=== PATIENT | female | born 1975 | race Caucasian/White ===

== ENCOUNTER → 2017-03-27 | Outpatient (CLI) | payer OTHER ==
--- NOTE | 2017-03-28 14:18 | Diagnostic Imaging Report ---
EXAMINATION: Bilateral screening mammogram 2D views with tomosynthesis. The current study was also evaluated with a Computer Aided Detection (CAD) system. INDICATION: Screening. PERSONAL HISTORY: No current complaints stated on the questionnaire. COMPARISON: 02/26/2016. FINDINGS: The breasts are composed of heterogeneously dense parenchyma which may decrease mammographic sensitivity. Postsurgical changes and surgical clips are seen in the central aspect of the left breast. Allowing for technique and positional differences, no suspicious change is seen. IMPRESSION: No significant change. ACR BI-RADS Category 2: Benign findings. Result letter will be mailed to the patient. Note: At least 10% of breast cancer is not imaged by mammography. Dictated on workstation # [id number]
== END ==
LOC: RAD 10:39
PROVIDERS: ATTEND Obstetrics & Gynecology
DX: Z12.31 Encounter for screening mammogram for malignant neoplasm of breast (principal)
CPT/HCPCS: 77067

== ENCOUNTER → 2018-04-07 | Outpatient (CLI) | payer OTHER ==
--- NOTE | 2018-04-07 12:55 | Diagnostic Imaging Report ---
INDICATION: Routine screening. Comparison is made with prior mammogram from 03/27/2017 02/26/2016. 2-D and 3-D bilateral screening mammography was performed with CAD. Both breasts are heterogeneously dense, limiting the sensitivity of mammography. Post surgical changes in the left breast are again noted. There are multiple punctate calcifications near the surgical site which appear to be stable. No new mass or malignant appearing microcalcifications are seen. The axillae are unremarkable. IMPRESSION: BI-RADS category 2 No mammographic features suspicious for malignancy are identified. ACR BI-RADS Category 2: Benign findings. Result letter will be mailed to the patient. Note: At least 10% of breast cancer is not imaged by mammography. Dictated by: Dictated on workstation # [id number]
== END ==
LOC: RAD 07:54
PROVIDERS: ATTEND Obstetrics & Gynecology
DX: Z12.31 Encounter for screening mammogram for malignant neoplasm of breast (principal)
CPT/HCPCS: 77067

== ENCOUNTER → 2019-04-08 | Outpatient (CLI) | payer OTHER ==
--- NOTE | 2019-04-08 18:41 | Diagnostic Imaging Report ---
EXAMINATION: Digital mammogram bilateral screening. The current study was also evaluated with a Computer Aided Detection (CAD) system. 3-D tomosynthesis was also performed and reviewed. INDICATION: Screening. This study was compared to the prior exams of 04/25/2018, 03/27/2017, 02/26/2016, and 02/10/2015. At this time, there are no current complaints. FINDINGS: The fibroglandular tissue in both breasts is heterogeneously dense. This does limit the sensitivity of this exam. The postsurgical changes involving the left breast seen previously are again evident. There is scar formation and surgical clips evident in the midportion of the left breast. There are also a number of calcifications in this region. These findings seem similar to the prior exams. There is no primary or secondary sign of malignancy noted. IMPRESSION: There is no evidence for malignancy. ACR BI-RADS Category 1: Negative. Result letter will be mailed to the patient. Note: At least 10% of breast cancer is not imaged by mammography. Dictated by: Dictated on workstation # [id number]
== END ==
LOC: RAD 08:08
PROVIDERS: ATTEND Obstetrics & Gynecology
DX: Z12.31 Encounter for screening mammogram for malignant neoplasm of breast (principal)
CPT/HCPCS: 77067

== ENCOUNTER 2019-07-08 14:13 | Outpatient (CLI) | payer OTHER ==
[~2019-07-08] VITALS: Ht 175 cm; Wt 73.8 kg
[2019-07-08] MEDS ORDERED: CHOL2000 PO (14:22)
[2019-07-08] MEDS ORDERED: ACYC400T7 PO (14:22)
[2019-07-08] MEDS ORDERED: LORA10TA76 PO (14:22)
[2019-07-08] MEDS ORDERED: FERR-84 PO (14:22)
[2019-07-08 14:25] VITALS: BP 109/63
[2019-07-08 15:21] LABS: BASOPHILS % (AUTO) 0 % (0-10); EOSINOPHILS # (AUTO) 0.3 10^3/uL (0.0-0.3); EOSINOPHILS % (AUTO) 4 % (0-10); HEMATOCRIT 40 % (35-52); HEMOGLOBIN 13.3 G/DL (11.5-16.0); LYMPHOCYTES # (AUTO) 2.4 X 10^3 (1.0-4.0); LYMPHOCYTES % (AUTO) 31 % (12-44); MEAN CORPUSCULAR HEMOGLOBIN 29 PG (25-34); MEAN CORPUSCULAR HGB CONC 34 G/DL (32-36); MEAN CORPUSCULAR VOLUME 86 FL (80-99); MEAN PLATELET VOLUME 11.3 FL (7.4-10.4); MONOCYTES # (AUTO) 0.6 X 10^3 (0.0-1.0); MONOCYTES % (AUTO) 8 % (0-12); NEUTROPHILS # (AUTO) 4.4 X 10^3 (1.8-7.8); NEUTROPHILS % (AUTO) 57 % (42-75); PLATELET COUNT 190 10^3/uL (130-400); RED CELL DISTRIBUTION WIDTH 13.5 % (10.0-14.5); WHITE BLOOD COUNT 7.8 10^3/uL (4.3-11.0)
[2019-07-13] MEDS ORDERED: IBUP-1773 PO (11:54)
[2019-07-13] MEDS ORDERED: OXC5T PO (11:54)
[2019-07-13] MEDS ORDERED: ACET-168 PO (11:54)
== END 2019-07-08 15:30 | disposition home or self-care (01) ==
LOC: PREOP 14:13
PROVIDERS: ATTEND Obstetrics & Gynecology
DX: Z01.818 Encounter for other preprocedural examination (principal); Z01.812 Encounter for preprocedural laboratory examination; N81.10 Cystocele, unspecified
CPT/HCPCS: 36415; 85025; 86850; 86900; 86901; 87081

== ENCOUNTER → 2020-05-02 | Outpatient (CLI) | payer OTHER ==
[~2020-05-02] MED LIST: ACET-168 PO; ACYC400T7 PO; CHOL2000 PO; FERR-84 PO; IBUP-1773 PO; LORA10TA76 PO; OXC5T PO
--- NOTE | 2020-05-02 10:30 | Diagnostic Imaging Report ---
INDICATION: Routine screening. COMPARISON: 04/08/2019 and 04/07/2018. TECHNIQUE: 2D and 3D bilateral screening mammography was performed with CAD. FINDINGS: Both breasts are heterogeneously dense, limiting the sensitivity of mammography. Post-therapeutic changes in the left breast are again noted. The lumpectomy site appears stable. Benign calcifications at the lumpectomy site appear stable. There is a slightly nodular density in the upper and outer right breast at mid depth. This is best seen on CC tomographic slice 40. Additional views are recommended. No suspicious microcalcifications are seen. The axillae are unremarkable. IMPRESSION: Right breast density. Additional views are recommended for further evaluation. ACR BI-RADS Category 0: Incomplete. (Needs additional imaging evaluation). Result letter will be mailed to the patient. Note: At least 10% of breast cancer is not imaged by mammography. Dictated by: Dictated on workstation # [id number]
== END ==
LOC: RAD 08:30
PROVIDERS: ATTEND Obstetrics & Gynecology
DX: Z12.31 Encounter for screening mammogram for malignant neoplasm of breast (principal); N63.11 Unspecified lump in the right breast, upper outer quadrant
CPT/HCPCS: 77063; 77067

== ENCOUNTER → 2020-05-11 | Outpatient (CLI) | payer OTHER ==
--- NOTE | 2020-05-11 14:30 | Diagnostic Imaging Report ---
INDICATION: Right breast density. Patient presents for additional views. COMPARISON: Recent screening study from 05/02/2020. TECHNIQUE: Unilateral right 2D and 3D diagnostic mammography was performed including spot compression CC and ML views as well as a conventional 90 degree lateral view. The current study was evaluated with a Computer Aided Detection (CAD) system. FINDINGS: There is a persistent slightly nodular density in the upper outer right breast approximately 6 cm from the nipple. No suspicious microcalcifications are seen. IMPRESSION: Persistent density in the upper outer right breast 6 cm from the nipple. Further evaluation of this area with ultrasound is recommended and will be performed today. ACR BI-RADS Category 0: Incomplete. (Needs additional imaging evaluation). Result letter will be mailed to the patient. Note: At least 10% of breast cancer is not imaged by mammography. Dictated by: Dictated on workstation # [id number]
--- NOTE | 2020-05-11 14:32 | Diagnostic Imaging Report ---
INDICATION: Right breast density. COMPARISON: Correlation is made with the screening mammogram from 05/02/2020 and the diagnostic mammogram from 05/11/2020. FINDINGS: Sonographic interrogation of the upper and outer aspect of the right breast was performed. No sonographic abnormality is detected. No solid or cystic mass is identified. IMPRESSION: No sonographic abnormality is identified. Even so, a followup right mammogram in 6 months is recommended to show continued stability. ACR BI-RADS Category 3: Probably benign findings. Dictated by: Dictated on workstation # [id number]
== END ==
LOC: RAD 13:15
PROVIDERS: ATTEND Obstetrics & Gynecology
DX: R92.2 Inconclusive mammogram (principal)
CPT/HCPCS: 76642; 77065; G0279

== ENCOUNTER → 2020-12-21 | Outpatient (CLI) | payer OTHER ==
--- NOTE | 2020-12-21 10:56 | Diagnostic Imaging Report ---
Indication: Right breast density. Patient presents for six-month follow-up. Correlation is made with prior mammogram 05/02/2020, 04/08/2019. Unilateral right 2-D and 3-D diagnostic mammography was performed with CAD. Right breast remains heterogeneously dense, limiting the sensitivity of mammography. Area of nodular density in the outer right breast is less prominent on today's study most likely represent fibroglandular tissue. No new mass is detected. No malignant appearing microcalcifications are seen. Right axilla is unremarkable. IMPRESSION: BI-RADS Category 2 No mammographic features suspicious for malignancy are identified. Patient may return to routine annual screening mammography. ACR BI-RADS Category 2: Benign findings. Result letter will be mailed to the patient. Note: At least 10% of breast cancer is not imaged by mammography. Dictated by: Dictated on workstation # [id number]
== END ==
LOC: RAD 09:04
PROVIDERS: ATTEND Obstetrics & Gynecology
DX: R92.2 Inconclusive mammogram (principal)
CPT/HCPCS: 77065; G0279

== ENCOUNTER → 2020-12-23 | Outpatient (CLI) | payer OTHER ==
[2020-12-23 12:09] LABS: HEMOGLOBIN 14.1 g/dL (11.5-16.0); LYMPHOCYTES % (AUTO) 22 % (12-44); MEAN CORPUSCULAR HEMOGLOBIN 29 pg (25-34); MEAN PLATELET VOLUME 10.6 fL (9.0-12.2)
[2020-12-23 12:11] LABS: BASOPHILS % (AUTO) 0 % (0-10); EOSINOPHILS % (AUTO) 0 % (0-10); HEMATOCRIT 43 % (35-52); LYMPHOCYTES # (AUTO) 1.2 10^3/uL (1.0-4.0); MEAN CORPUSCULAR HGB CONC 33 g/dL (32-36); MEAN CORPUSCULAR VOLUME 87 fL (80-99); MONOCYTES # (AUTO) 0.6 10^3/uL (0.0-1.0); MONOCYTES % (AUTO) 11 % (0-12); NEUTROPHILS # (AUTO) 3.5 10^3/uL (1.8-7.8); NEUTROPHILS % (AUTO) 66 % (42-75); PLATELET COUNT 135 10^3/uL (130-400); WHITE BLOOD COUNT 5.4 10^3/uL (4.3-11.0)
[2020-12-23 12:30] LABS: ALANINE AMINOTRANSFERASE 23 U/L (0-55); ALBUMIN 4.1 GM/DL (3.2-4.5); ALKALINE PHOSPHATASE 49 U/L (40-136); BILIRUBIN,TOTAL 0.5 MG/DL (0.1-1.0); BUN/CREATININE RATIO 8; CALCIUM 9.4 MG/DL (8.5-10.1); CARBON DIOXIDE 25 MMOL/L (21-32); CHLORIDE 105 MMOL/L (98-107); CREATININE SERUM 0.86 MG/DL (0.60-1.30); GFR ESTIMATED > 60; GLUCOSE 94 MG/DL (70-105); POTASSIUM 3.8 MMOL/L (3.6-5.0); SODIUM 138 MMOL/L (135-145); TOTAL PROTEIN 7.3 GM/DL (6.4-8.2)
== END ==
LOC: LAB 11:55
PROVIDERS: ATTEND Nurse Practitioner Family
DX: M54.2 Cervicalgia (principal); R53.83 Other fatigue; R51.9 Headache, unspecified; R59.1 Generalized enlarged lymph nodes
CPT/HCPCS: 36415; 80053; 85025; 86663; 86664; 86665

== ENCOUNTER → 2021-05-03 | Outpatient (CLI) | payer OTHER ==
--- NOTE | 2021-05-03 14:57 | Diagnostic Imaging Report ---
Digital mammogram. Indication: Bilateral screening This study was compared to the prior exams of 12/21/2020, 05/02/2020, 04/08/2019 and 04/07/2018. At this time there are no current complaints. The fibroglandular tissue in both breasts is heterogeneously dense. This does limit the sensitivity of this exam. The posterior cervical chains involving the left breast seen previously are again evident and not significantly different. The overall appearance of the right breast is also unchanged when compared to the prior study. There is no primary or secondary sign of malignancy involving either breast. Impression: There is no evidence of malignancy. ACR BI-RADS Category 1 NEGATIVE Result letter will be mailed to the patient. Note: At least 10% of breast cancer is not imaged by mammography. Dictated by: Dictated on workstation # [id number]
== END ==
LOC: RAD 07:45
PROVIDERS: ATTEND Obstetrics & Gynecology
DX: Z12.31 Encounter for screening mammogram for malignant neoplasm of breast (principal)
CPT/HCPCS: 77063; 77067

== ENCOUNTER 2021-08-02 21:44 | Emergency (ER) | payer OTHER ==
[~2021-08-02] VITALS: Ht 175.3 cm; Wt 72.6 kg
[2021-08-02 21:50] VITALS: BP 110/66
[2021-08-02 21:57] LABS: BILIRUBIN,URINE NEGATIVE (NEGATIVE); CLARITY,URINE CLEAR; COLOR,URINE YELLOW; GLUCOSE, URINE (UA) NEGATIVE (NEGATIVE); KETONES,URINE NEGATIVE (NEGATIVE); LEUKOCYTE ESTERASE ,URINE NEGATIVE (NEGATIVE); NITRITE,URINE NEGATIVE (NEGATIVE); PROTEIN,URINE NEGATIVE (NEGATIVE)
--- NOTE | 2021-08-02 22:15 | ED General ---
General Chief Complaint: Abdominal/GI Problems Stated Complaint: RIGHT SIDE PAIN Source of Information: Patient, Spouse Exam Limitations: No Limitations (MACHO COONEY MED STUDENT) History of Present Illness Date Seen by Provider: Aug 02, 2021 Time Seen by Provider: 22:04 Initial Comments Ivana Lindsey is a 46 yr old F presenting to ED for CC of RLQ abdominal pain. Pt states pain began approximately at 19:30 this evening during her son's basketba ll practice. Pt notes the pain has been isolated to the RLQ without radiation. Pain is described as a dull, concentrated pressure and rated at a 6-7/10 that is progressively worsening. Associated symptoms endorsed include nausea and denies constipation or increased flatulence. Pt denies PMH. PSH includes hysterectomy w/o oophorectomy. Endorses prophylactic acyclovir use for cold sores and claritin use for allergies. Timing/Duration: 1-3 Hours Severity: Mild Modifying Factors: worse with Movement; improves with Rest Associated Systoms: Nausea/Vomiting (MACHO COONEY MED STUDENT) Allergies and Home Medications Allergies Coded Allergies: Sulfa (Sulfonamide Antibiotics) (Verified Allergy, Mild, HIVES, 07/08/19) cefaclor (Verified Allergy, Mild, HIVES, 07/08/19) Patient Home Medication List Home Medication List Reviewed: Yes (HIRAM WILKINS MD) Acetaminophen (Acetaminophen Extra Strength) 500 Mg Tablet, 1,000 MG PO Q8H Prescribed by: NILESH YARBROUGH on 07/13/19 1154 Acyclovir (Zovirax) 400 Mg Tablet, 400 MG PO DAILY PRN for COLD SORES, (Reported) Entered as Reported by: KENROY LEDESMA on 07/08/19 1422 Cholecalciferol (Vitamin D3) (Vitamin D) 2,000 Unit Capsule, 2,000 UNIT PO DAILY, (Reported) Entered as Reported by: KENROY LEDESMA on 07/08/19 1422 Ferrous Sulfate (Iron) 325 Mg Tablet, 325 MG PO DAILY, (Reported) Entered as Reported by: KENROY LEDESMA on 07/08/19 1422 Ibuprofen (Ibuprofen) 600 Mg Tablet, 600 MG PO Q6H PRN for PAIN-MILD Prescribed by: NILESH YARBROUGH on 07/13/19 1154 Loratadine (Claritin) 10 Mg Tablet, 10 MG PO DAILY, (Reported) Entered as Reported by: KENROY LEDESMA on 07/08/19 1422 Oxycodone Hcl (Oxycodone IR) 5 Mg Tab, 5 MG PO Q4H PRN for PAIN-SEVERE Prescribed by: NILESH YARBROUGH on 07/13/19 1154 Review of Systems Review of Systems Constitutional: no symptoms reported EENTM: no symptoms reported Respiratory: no symptoms reported Cardiovascular: no symptoms reported Gastrointestinal: RLQ; No constipation; nausea; No vomiting Genitourinary: no symptoms reported : No Musculoskeletal: no symptoms reported Skin: no symptoms reported Psychiatric/Neurological: No Symptoms Reported Hematologic/Lymphatic: No Symptoms Reported Immunological/Allergic: no symptoms reported (MACHO COONEY) All Other Systems Reviewed Negative Unless Noted: Yes (MACHO COONEY) Past Fzxvoib-Xgzkdk-Yetelp Hx Seasonal Allergies Seasonal Allergies: Yes (MACHO COONEY) Past Medical History Surgeries: Yes (BREAST BIOPSY, MOLES REMOVED CHILD) Hysterectomy (w/o oophorectomy) Respiratory: Yes (EXERCISE INDUCED ASTHMA (NO ISSUES RECENTLY)) Currently Using CPAP: No Currently Using BIPAP: No Cardiac: No Neurological: No Female Reproductive Disorders: Denies Sexually Transmitted Disease: No HIV/AIDS: Yes Genitourinary: No Gastrointestinal: No Musculoskeletal: No Endocrine: Yes (HAS TAKEN MEDS IN THE PAST) Hypothyroidsim HEENT: Yes (GLASSES) Loss of Vision: Denies Hearing Impairment: Denies Cancer: No Psychosocial: No Integumentary: Yes Eczema Blood Disorders: Yes (HX LOW IRON) Adverse Reaction/Blood Tranf: No (N/A) (MACHO COONEY) Physical Exam Vital Signs Vital Signs - First Documented 08/02/21 21:50 Temp 36.8 Pulse 95 Resp 18 B/P (MAP) 110/66 (81) Pulse Ox 98 O2 Delivery Room Air (HIRAM WILKINS MD) Vital Signs Capillary Refill : (MACHO COONEY STUDENT) Height, Weight, BMI Height: 5'7" Weight: 160lbs. oz. kg; 24.09 BMI Method: General Appearance: WD/WN, Mild Distress Neck: Supple Respiratory: Chest Non Tender, Lungs Clear, Normal Breath Sounds, No Accessory Muscle Use, No Respiratory Distress Cardiovascular: Regular Rate, Rhythm, No Edema, No Gallop, No Murmur Gastrointestinal: Normal Bowel Sounds, Tenderness (RLQ), Other (Psoas sign (+)) Rectal: Deferred Neurologic/Psychiatric: Alert, Oriented x3, No Motor/Sensory Deficits, Normal Mood/Affect Skin: Normal Color, Warm/Dry ([facility]) Progress/Results/Core Measures Suspected Sepsis SIRS Temperature: Pulse: Respiratory Rate: Blood Pressure / Mean: ([facility]) Results/Orders Lab Results Laboratory Tests Test 08/02/21 21:53 08/02/21 22:20 Range/Units Urine Color YELLOW Urine Clarity CLEAR Urine pH 6.0 5-9 Urine Specific [place] 1.025 H 1.016-1.022 Urine Protein NEGATIVE NEGATIVE Urine Glucose (UA) NEGATIVE NEGATIVE Urine Ketones NEGATIVE NEGATIVE Urine Nitrite NEGATIVE NEGATIVE Urine Bilirubin NEGATIVE NEGATIVE Urine Urobilinogen 0.2 < = 1.0 MG/DL Urine Leukocyte Esterase NEGATIVE NEGATIVE Urine RBC (Auto) TRACE-I H NEGATIVE Urine RBC 2-5 H /HPF Urine WBC 0-2 /HPF Urine Squamous Epithelial Cells 2-5 /HPF Urine Crystals NONE /LPF Urine Bacteria MODERATE H /HPF Urine Casts NONE /LPF Urine Mucus NEGATIVE /LPF Urine Culture Indicated YES White Blood Count 10.5 4.3-11.0 10^3/uL Red Blood Count 3.95 3.80-5.11 10^6/uL Hemoglobin 11.0 L 11.5-16.0 g/dL Hematocrit 34 L 35-52 % Mean Corpuscular Volume 85 80-99 fL Mean Corpuscular Hemoglobin 28 25-34 pg Mean Corpuscular Hemoglobin Concent 33 32-36 g/dL Red Cell Distribution Width 13.5 10.0-14.5 % Platelet Count 172 130-400 10^3/uL Mean Platelet Volume 11.0 9.0-12.2 fL Immature Granulocyte % (Auto) 0 % Neutrophils (%) (Auto) 66 42-75 % Lymphocytes (%) (Auto) 22 12-44 % Monocytes (%) (Auto) 8 0-12 % Eosinophils (%) (Auto) 3 0-10 % Basophils (%) (Auto) 0 0-10 % Neutrophils # (Auto) 7.0 1.8-7.8 10^3/uL Lymphocytes # (Auto) 2.3 1.0-4.0 10^3/uL Monocytes # (Auto) 0.8 0.0-1.0 10^3/uL Eosinophils # (Auto) 0.3 0.0-0.3 10^3/uL Basophils # (Auto) 0.0 0.0-0.1 10^3/uL Immature Granulocyte # (Auto) 0.0 0.0-0.1 10^3/uL Sodium Level 139 135-145 MMOL/L Potassium Level 3.8 3.6-5.0 MMOL/L Chloride Level 109 H 98-107 MMOL/L Carbon Dioxide Level 17 L 21-32 MMOL/L Anion Gap 13 5-14 MMOL/L Blood Urea Nitrogen 21 H 7-18 MG/DL Creatinine 0.86 0.60-1.30 MG/DL Estimat Glomerular Filtration Rate 84 BUN/Creatinine Ratio 24 Glucose Level 103 70-105 MG/DL Calcium Level 8.8 8.5-10.1 MG/DL Corrected Calcium 9.0 8.5-10.1 MG/DL Total Bilirubin 0.2 0.1-1.0 MG/DL Aspartate Amino Transf (AST/SGOT) 15 5-34 U/L Alanine Aminotransferase (ALT/SGPT) 12 0-55 U/L Alkaline Phosphatase 35 L 40-136 U/L C-Reactive Protein High Sensitivity 0.13 0.00-0.50 MG/DL Total Protein 6.3 L 6.4-8.2 GM/DL Albumin 3.7 3.2-4.5 GM/DL (HIRAM WILKINS MD) Micro Results Microbiology 08/02/21 Urine Culture - Final, Complete NO GROWTH (HIRAM WILKINS MD) My Orders Orders - HIRAM WILKINS MD Ua Culture If Indicated (08/02/21 21:50) Cbc With Automated Diff (08/02/21 22:10) Comprehensive Metabolic Panel (08/02/21 22:10) Hs C Reactive Protein (08/02/21 22:10) Ed Iv/Invasive Line Start (08/02/21 22:10) Urine Culture (08/02/21 21:53) (HIRAM WILKINS MD) Vital Signs/I&O 1/27/22 21:50 Temp 36.8 Pulse 95 Resp 18 B/P (MAP) 110/66 (81) Pulse Ox 98 O2 Delivery Room Air (HIRAM WILKINS MD) Vital Signs/I&O Capillary Refill : (MACHO COONEY MED STUDENT) Departure Impression Primary Impression: Right lower quadrant pain Disposition: 01 HOME, SELF-CARE Condition: Improved Departure-Patient Inst. Decision time for Depature: 00:09 (HIRAM WILKINS MD) Referrals: NO,LOCAL PHYSICIAN (PCP/Family) Primary Care Physician Patient Instructions: Severe Abdominal Pain Add. Discharge Instructions: The exact cause of your abdominal pain is uncertain at this time. For mild pain you may treat with Tylenol (acetaminophen) up to 1000 mg every 6 hours as needed and/or ibuprofen up to 600 mg every 6 hours as needed. For more severe or escalating pain that is not responsive to [id number] medications, please return to the ER. Please also return to the ER if you have other developing symptoms such as fever, vomiting, etc. If pain persists in the morning, you may return to the hospital after 7:30 with your ultrasound order form for further evaluation. Start with clear liquids. After your ultrasound or after about 12 hours gradually advance your diet with small quantities of bland food as tolerated. Call with questions or concerns. Return to the ER if you have any other urgent problems or concerns. All discharge instructions reviewed with patient and/or family. Voiced understanding. Medical Student Attestation and Attending Note: I have personally interviewed and examined this patient along with Macho Cooney, MS4. I have reviewed student documentation including history, physical, and assessments. I agree with the documentation except where otherwise noted. Pain was mild to moderate in nature and improved some while in the ER. Labs and vitals were unremarkable. Possible causes of pain were discussed as well as risks and benefits of imaging modalities. She declines medication for pain or nausea at this time. She also declines CT imaging. As an alternative, an US is being ordered for the morning. Patient retains her ovaries after hysterectomy, so ovarian cyst is possible cause. Exam: General: Alert, oriented, no acute distress, well developed HEENT: Normocephalic and atraumatic Heart: Regular rate and rhythm without murmur Lungs: Clear to auscultation bilaterally with normal effort Abdomen: Soft, RLQ mild to mod TTP, nondistended, normal bowel sounds. Negative obturator, psoas, and Rovsing signs. Neuropsych: Alert, oriented, no focal deficits Skin: Warm and dry without rashes (HIRAM WILKINS MD) MACHO COONEY MED STUDENT Aug 02, 2021 22:15 HIRAM WILKINS MD Aug 03, 2021 00:13
[2021-08-02 22:16] LABS: BACTERIA,URINE MODERATE /HPF; WBC,URINE 0-2 /HPF
[2021-08-02 22:28] LABS: BASOPHILS % (AUTO) 0 % (0-10); EOSINOPHILS # (AUTO) 0.3 10^3/uL (0.0-0.3); EOSINOPHILS % (AUTO) 3 % (0-10); HEMATOCRIT 34 % (35-52); LYMPHOCYTES # (AUTO) 2.3 10^3/uL (1.0-4.0); LYMPHOCYTES % (AUTO) 22 % (12-44); MEAN CORPUSCULAR HEMOGLOBIN 28 pg (25-34); MEAN CORPUSCULAR HGB CONC 33 g/dL (32-36); MEAN CORPUSCULAR VOLUME 85 fL (80-99); MONOCYTES # (AUTO) 0.8 10^3/uL (0.0-1.0); MONOCYTES % (AUTO) 8 % (0-12); NEUTROPHILS % (AUTO) 66 % (42-75); PLATELET COUNT 172 10^3/uL (130-400); WHITE BLOOD COUNT 10.5 10^3/uL (4.3-11.0)
[2021-08-02 22:53] LABS: ALBUMIN 3.7 GM/DL (3.2-4.5); BILIRUBIN,TOTAL 0.2 MG/DL (0.1-1.0); CALCIUM 8.8 MG/DL (8.5-10.1); CREATININE SERUM 0.86 MG/DL (0.60-1.30); POTASSIUM 3.8 MMOL/L (3.6-5.0); TOTAL PROTEIN 6.3 GM/DL (6.4-8.2)
== END 2021-08-03 00:31 | disposition home or self-care (01) ==
LOC: EDUNIT# 21:44 → ER 21:46
DX: R10.31 Right lower quadrant pain (principal); J45.990 Exercise induced bronchospasm; Z90.711 Acquired absence of uterus with remaining cervical stump
CPT/HCPCS: 36415; 80053; 81000; 85025; 86141; 87088

== ENCOUNTER → 2021-08-03 | Outpatient (CLI) | payer OTHER ==
--- NOTE | 2021-08-03 14:19 | Diagnostic Imaging Report ---
PROCEDURE: Pelvic comp/transvaginal sonogram. TECHNIQUE: Complete transabdominal and transvaginal pelvic ultrasound was performed. In addition, limited pelvic Doppler was performed. INDICATION: Partial hysterectomy in 2019. Patient has right lower quadrant pain. The uterus is surgically absent. The right ovary measures 5.5 x 3.6 x 2.8 cm and the left ovary measures 3.7 x 2.1 x 2.2 cm. The right ovary contains multiple cysts, the largest is approximate 2.5 cm in diameter. There is blood flow to the right ovary. The left ovary contains a septated cyst measuring 1.7 cm in size. There is blood flow to the left ovary. A small amount free fluid is noted. IMPRESSION: 1. Status post hysterectomy. 2. Bilateral ovarian cysts, as described. Dictated by: Dictated on workstation # [id number]
== END ==
LOC: RAD 13:00
PROVIDERS: ATTEND Family Medicine
DX: N83.202 Unspecified ovarian cyst, left side (principal); N83.201 Unspecified ovarian cyst, right side; Z90.710 Acquired absence of both cervix and uterus
CPT/HCPCS: 76830; 76856

== ENCOUNTER → 2022-05-07 | Outpatient (CLI) | payer OTHER ==
--- NOTE | 2022-05-07 16:06 | Diagnostic Imaging Report ---
INDICATION: Routine screening. COMPARISON: 05/03/2021 and 05/02/2020. TECHNIQUE: 2D and 3D bilateral screening mammography was performed with CAD. FINDINGS: Both breasts are heterogeneously dense, limiting the sensitivity of mammography. There are post-therapeutic changes in the left breast. The parenchymal pattern is stable. No mass or malignant-appearing microcalcifications are seen. There are benign calcifications on the left. The axillae are unremarkable. IMPRESSION: No mammographic features suspicious for malignancy are identified. ACR BI-RADS Category 2: Benign findings. Result letter will be mailed to the patient. Note: At least 10% of breast cancer is not imaged by mammography. Dictated by: Dictated on workstation # [id number]
== END ==
LOC: RAD 07:56
PROVIDERS: ATTEND Nurse Practitioner Women's Health
DX: Z12.31 Encounter for screening mammogram for malignant neoplasm of breast (principal)
CPT/HCPCS: 77063; 77067

== ENCOUNTER 2023-02-12 05:35 | Outpatient (CLI) | payer OTHER ==
[~2023-02-12] VITALS: Ht 175.3 cm; Wt 76.5 kg
[2023-02-17] MEDS ORDERED: [UNRECOGNIZED DRUG - MIXTURE] TOP (14:10)
[2023-02-17] MEDS ORDERED: ACYC5CRE8 TP (14:10)
[2023-02-17] MEDS ORDERED: LEVO25CA4 PO (14:10)
== END 2023-02-17 14:17 | disposition home or self-care (01) ==
LOC: PREOP 05:35
PROVIDERS: ATTEND Surgery
DX: Z01.818 Encounter for other preprocedural examination (principal)

== ENCOUNTER 2023-02-25 09:57 | Day surgery (SDC) | payer OTHER ==
[~2023-02-25] VITALS: Ht 175 cm; Wt 76.5 kg
[~2023-02-25 09:57] MED LIST changes: +ACYC5CRE8 TP; +LEVO25CA4 PO; +[UNRECOGNIZED DRUG - MIXTURE] TOP
[2023-02-25] MEDS ORDERED: LACTATED RINGERS 1,000 ML 1,000 ML IV STA (09:58)
[2023-02-25] MEDS ORDERED: LACTATED RINGERS 1,000 ML 1,000 ML IV ONE (10:05)
[2023-02-25 10:21] VITALS: BP 120/58
[2023-02-25] MEDS ORDERED: MIDAZOLAM INJ 2 MG/2 ML VIAL ONE (10:36)
[2023-02-25 10:55] VITALS: BP 96/55
--- NOTE | 2023-02-25 10:55 | Progress Note-Post Operative ---
Post-Operative Progess Note Surgeon (s)/Paving Bed Maker (s) Surgeon BHARATH ROBLEDO DO Paving Bed Maker: none Pre-Operative Diagnosis screening colonoscopy Post-Operative Diagnosis normal colon Procedure & Operative Findings Date of Procedure 02/25/23 Procedure Performed/Findings colonoscopy Anesthesia Type per FERRY OPERATOR Estimated Blood Loss Estimated blood loss (mL): none Specimens/Packing Specimens Removed none BHARATH ROBLEDO DO Feb 25, 2023 10:55
--- NOTE | 2023-02-25 10:57 | Discharge Inst-Simple/Standard ---
Discharge Inst-Standard Patient Instructions/Follow Up Plan of Care/Instructions/FU: follow up 10 years unless family history of colon cancer then 5 years. any issues before then should be seen at that time. Activity as Tolerated: Yes Discharge Diet: Regular Diet BHARATH ROBLEDO DO Feb 25, 2023 10:57
[2023-02-25 11:00] VITALS: BP 98/55
[2023-02-25 11:05] VITALS: BP 98/55
[2023-02-25 11:35] VITALS: BP 98/55
--- NOTE | 2023-02-25 13:02 | Progress Note-Pre Operative ---
Pre-Operative Progress Note Date H&P Reviewed: Feb 25, 2023 Time H&P Reviewed: 10:06 History & Physical: H&P Reviewed, Patient Examed, No changes noted Pre-Operative Diagnosis: screening colonoscopy BHARATH ROBLEDO DO Feb 25, 2023 13:02
--- NOTE | 2023-02-25 14:05 | OPERATIVE REPORT ---
DATE OF SERVICE: 02/25/2023 PREOPERATIVE DIAGNOSIS: Screening colonoscopy. POSTOPERATIVE DIAGNOSIS: Normal colon. PROCEDURE: Colonoscopy. SURGEON: Bharath Phan DO ANESTHESIA: Per DIRECTOR OF VOCATIONAL GUIDANCE. ESTIMATED BLOOD LOSS: None. COMPLICATIONS: None. INDICATIONS: The patient is a 47-year-old female, needing screening colonoscopy. She understands risks and benefits of procedure and wished to proceed. Consent was signed in chart. DESCRIPTION OF PROCEDURE: The patient was taken to endoscopy suite, placed in left lateral recumbent position. Timeout was performed. Digital rectal exam was performed. No palpable polyps, masses or ulcerations. Scope was inserted in the rectum and advanced all the way to the cecum with minimal difficulty. Prep was adequate. Scope was slowly retracted back. No polyps, masses or ulcerations in the cecum, ascending, transverse, descending and sigmoid colon. Once in the rectum, scope was retroflexed noting no other pathology. Scope was returned to its normal position, slowly withdrawn until completely removed. The patient tolerated the procedure well without any complications, taken to recovery room in stable condition. RECOMMENDATIONS: The patient will need repeat colonoscopy in 10 years unless family history of colon cancer, which will then be 5 years. Any issues before that, be seen at that time. Job ID: [id number] DocumentID: [id number] Dictated Date: 02/25/2023 10:56:54 Suction Dredge Dumping Supervisor Date: 02/25/2023 14:02:00 Dictated By: BHARATH PHAN DO
--- NOTE | 2023-02-25 14:05 | Anesthesia-General Post-Op ---
MAC Patient Condition Mental Status/LOC: Same as Preop Cardiovascular: Satisfactory Nausea/Vomiting: Absent Respiratory: Satisfactory Pain: Controlled Complications: Absent Post Op Complications Complications None Follow Up Care/Instructions Patient Instructions None needed. Anesthesiology Discharge Order Discharge Order Patient is doing well, no complaints, stable vital signs, no apparent adverse anesthesia problems. No complications reported per nursing. MEENA SUERO CRNA Feb 25, 2023 14:05
== END 2023-02-25 11:35 | disposition home or self-care (01) ==
LOC: ENDO 09:57
PROVIDERS: ATTEND Surgery
DX: Z12.11 Encounter for screening for malignant neoplasm of colon (principal)

== ENCOUNTER 2023-06-06 14:09 | Emergency (ER) | payer OTHER ==
[~2023-06-06] VITALS: Ht 175.3 cm; Wt 74.8 kg
[2023-06-06] MEDS ORDERED: NS IV 1000 ML 1,000 ML IV STA (14:23)
--- NOTE | 2023-06-06 14:27 | ED Abdominal Pain ---
General Stated Complaint: LT SIDE PAIN | NAUSEA Source of Information: Patient Exam Limitations: No Limitations History of Present Illness Date Seen by Provider: Jun 06, 2023 Time Seen by Provider: 14:24 Initial Comments Patient is a 47-year-old female who presents to the ED with left lower quad abdominal pain. She woke up with pain this morning. Described as pressure sharp and fairly constant. Pain radiates to the left flank. She reports nausea with spitting up vomiting. She denies taking anything for pain, She denies pain with urination, frequent urination or dark urine. History of ovarian cyst 1 yea r ago that feels very similar as it ruptured. . History of C-sections. She denies fever, chills, diarrhea, chest pain, shortness of breath. She in moderate distress on arrival. Patient denies any vaginal bleeding. She did have a bowel movement with no improvement of pain Allergies and Home Medications Allergies Coded Allergies: Sulfa (Sulfonamide Antibiotics) (Verified Allergy, Mild, HIVES, 07/08/19) cefaclor (Verified Allergy, Mild, HIVES, 07/08/19) Patient Home Medication List Home Medication List Reviewed: Yes Acyclovir (Acyclovir) 5 % Cream..g., 5 GM TP PRN, (Reported) Entered as Reported by: ИРИНА CHAVEZ on 02/17/231409 Hydrocodone/Acetaminophen (Hydrocodone-Acetamin 5-325 mg) 5 Mg-325 Mg Tablet, 1 TAB PO Q4H PRN for PAIN-MODERATE (5-7) Prescribed by: ELLA VILLATORO on 06/06/23 1652 Levothyroxine Sodium (Levothyroxine) 25 Mcg Capsule, 25 MCG PO DAILY, (Reported) Entered as Reported by: ИРИНА CHAVEZ on 02/17/23 141 Loratadine (Claritin) 10 Mg Tablet, 10 MG PO DAILY, (Reported) Entered as Reported by: KENROY LDEESMA on 07/08/19 1422 [Progestone/Testoster] , 1 ML TOP DAILY, (Reported) Entered as Reported by: ИРИНА CHAVEZ on 02/17/23 141 Review of Systems Review of Systems Constitutional: No chills, No diaphoresis, No malaise, No weakness EENTM: No Double Vision, No Eye Pain Respiratory: Denies Cough, Denies Orthopnea Cardiovascular: Denies Chest Pain Gastrointestinal: Abdominal Pain; Denies Diarrhea; Nausea, Vomiting Genitourinary: Denies Burning, Denies Discharge, Denies Frequency, Denies Flank Pain Musculoskeletal: No back pain, No joint pain Skin: No change in color, No change in hair/nails All Other Systems Reviewed Negative Unless Noted: Yes Past Iqvvlnx-Gkcduh-Dmwhdw Hx Immunizations Up To Date First/Initial COVID19 Vaccinat: YES J&J Second COVID19 Vaccination Kapil: YES 05/17/21 Third COVID19 Vaccination Date: YES 05/17/21 Seasonal Allergies Seasonal Allergies: Yes Past Medical History Surgeries: Yes (BREAST BIOPSY, MOLES REMOVED CHILD) Hysterectomy Respiratory: Yes (EXERCISE INDUCED ASTHMA (NO ISSUES RECENTLY)) Currently Using CPAP: No Currently Using BIPAP: No Cardiac: Yes High Cholesterol Neurological: No Female Reproductive Disorders: Denies SUSTAINABILITY MANAGER History: Hysterectomy Sexually Transmitted Disease: No HIV/AIDS: Yes Genitourinary: No Gastrointestinal: No Musculoskeletal: No Endocrine: Yes Hypothyroidsim HEENT: Yes (GLASSES) Loss of Vision: Denies Hearing Impairment: Denies Cancer: No Psychosocial: No Integumentary: Yes Eczema Blood Disorders: Yes (HX LOW IRON) Adverse Reaction/Blood Tranf: No (N/A) Physical Exam Vital Signs Vital Signs - First Documented 06/06/23 06/06/23 14:17 17:00 Temp 36.5 Pulse 73 Resp 22 B/P (MAP) 115/60 (78) Pulse Ox 99 O2 Delivery Room Air Capillary Refill : Height/Weight/BMI Height: 5'7" Weight: 160lbs. oz. kg; 24.97 BMI Method: General Appearance: WD/WN, no apparent distress HEENT: PERRL/EOMI, normal ENT inspection, TMs normal, pharynx normal Neck: non-tender, full range of motion, supple Respiratory: chest non-tender, lungs clear, normal breath sounds, no respiratory distress, no accessory muscle use Cardiovascular: regular rate, rhythm, no edema, no gallop, no JVD Gastrointestinal: normal bowel sounds, soft, no organomegaly, tenderness (Left lower quadrant tenderness) Extremities: normal range of motion, non-tender, normal inspection Back: normal inspection, CVA tenderness (L) Neurologic/Psychiatric: 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, no motor/sensory deficits, alert, normal mood/affect Skin: normal color, warm/dry Progress/Results/Core Measures Results/Orders Lab Results Laboratory Tests Test 06/06/23 14:17 06/06/23 14:20 Range/Units Urine Color YELLOW Urine Clarity CLEAR Urine pH 6.0 5-9 Urine Specific Grabill >=1.030 1.016-1.022 Urine Protein NEGATIVE NEGATIVE Urine Glucose (UA) NEGATIVE NEGATIVE Urine Ketones NEGATIVE NEGATIVE Urine Nitrite NEGATIVE NEGATIVE Urine Bilirubin NEGATIVE NEGATIVE Urine Urobilinogen 0.2 < = 1.0 MG/DL Urine Leukocyte Esterase NEGATIVE NEGATIVE Urine RBC (Auto) TRACE H NEGATIVE Urine RBC 0-2 /HPF Urine WBC NONE /HPF Urine Squamous Epithelial Cells 0-2 /HPF Urine Crystals NONE /LPF Urine Bacteria TRACE /HPF Urine Casts NONE /LPF Urine Mucus NEGATIVE /LPF Urine Culture Indicated NO White Blood Count 11.1 H 4.3-11.0 10^3/uL Red Blood Count 4.67 3.80-5.11 10^6/uL Hemoglobin 13.6 11.5-16.0 g/dL Hematocrit 42 35-52 % Mean Corpuscular Volume 89 80-99 fL Mean Corpuscular Hemoglobin 29 25-34 pg Mean Corpuscular Hemoglobin Concent 33 32-36 g/dL Red Cell Distribution Width 13.9 10.0-14.5 % Platelet Count 237 130-400 10^3/uL Mean Platelet Volume 10.7 9.0-12.2 fL Immature Granulocyte % (Auto) 0 % Neutrophils (%) (Auto) 63 42-75 % Lymphocytes (%) (Auto) 28 12-44 % Monocytes (%) (Auto) 6 0-12 % Eosinophils (%) (Auto) 2 0-10 % Basophils (%) (Auto) 1 0-10 % Neutrophils # (Auto) 7.0 1.8-7.8 10^3/uL Lymphocytes # (Auto) 3.1 1.0-4.0 10^3/uL Monocytes # (Auto) 0.7 0.0-1.0 10^3/uL Eosinophils # (Auto) 0.2 0.0-0.3 10^3/uL Basophils # (Auto) 0.1 0.0-0.1 10^3/uL Immature Granulocyte # (Auto) 0.0 0.0-0.1 10^3/uL Sodium Level 140 135-145 MMOL/L Potassium Level 3.5 L 3.6-5.0 MMOL/L Chloride Level 107 98-107 MMOL/L Carbon Dioxide Level 23 21-32 MMOL/L Anion Gap 10 5-14 MMOL/L Blood Urea Nitrogen 13 7-18 MG/DL Creatinine 0.77 0.60-1.30 MG/DL Estimat Glomerular Filtration Rate 95 BUN/Creatinine Ratio 17 Glucose Level 106 H 70-105 MG/DL Calcium Level 8.9 8.5-10.1 MG/DL Corrected Calcium 8.8 8.5-10.1 MG/DL Total Bilirubin 0.4 0.1-1.0 MG/DL Aspartate Amino Transf (AST/SGOT) 16 5-34 U/L Alanine Aminotransferase (ALT/SGPT) 15 0-55 U/L Alkaline Phosphatase 43 40-136 U/L Total Protein 7.0 6.4-8.2 GM/DL Albumin 4.1 3.2-4.5 GM/DL Lipase 50 8-78 U/L My Orders Orders - ANNMARIE DICKERSON Ua Culture If Indicated (06/06/23 14:15) Cbc And Automated Diff (06/06/23 14:23) Comprehensive Metabolic Panel (06/06/23 14:23) Lipase (06/06/23 14:23) Ns Iv 1000 Ml (Ns Iv 1000 Ml) (06/06/23 14:23) Ondansetron Injection (Ondansetron Inj (06/06/23 14:30) Ketorolac Injection (Ketorolac Injection (06/06/23 14:30) Ct Abd/Pelvis Wo(Kidney Stone) (06/06/23 14:23) Us Non Ob Pelvis Comp/Transvag (06/06/23 15:10) Medications Given in ED Current Medications Medications Dose Ordered Sig/Magda Route Start Time Stop Time Status Last Admin Dose Admin Ketorolac Tromethamine 30 mg ONCE ONCE IVP 06/06/23 14:30 06/06/23 14:31 DC 06/06/23 14:30 30 MG Ondansetron HCl 4 mg ONCE ONCE IVP 06/06/23 14:30 06/06/23 14:31 DC 06/06/23 14:30 4 MG Vital Signs/I&O 06/06/23 06/06/23 14:17 17:00 Temp 36.5 Pulse 73 81 Resp 22 16 B/P (MAP) 115/60 (78) 127/68 Pulse Ox 99 97 O2 Delivery Room Air Departure Communication (PCP) Reviewed previous ER visits, H&P, lab testing. History of ovarian cyst bilateral. History of partial hysterectomy in 2019. Acute onset of left lower quadrant pain with left flank pain that developed today. Pain is intensified. Severe sharp pain. Nausea with vomiting. No diarrhea. No urinary symptoms. Vital signs stable. She did receive Toradol fentanyl with improvement of pain. Started on a liter of fluid was given IV Zofran. CBC, CMP, lipase, urinalysis was ordered. Differential diagnosis nephrolithiasis, urolithiasis, pyelonephritis, cystitis, ovarian cyst, ovarian torsion, diverticulitis. CBC, CMP was grossly unremarkable. Urinalysis with trace red blood cells. CT scan of the abdomen and pelvis shows mild wall thickening of the right hemicolon with some inflammatory strain of the adjacent fat. This can be seen with infectious or inflammatory colitis. She has no tenderness to this area more unlikely nonspecific finding. She does have a 3 cm left adnexal cyst. Likely more resu lt of patient's pain. No evidence of urolithiasis, nephrolithiasis.. Ultrasound was ordered to rule out ovarian torsion. Simple appearing 3 cm left ovarian cyst noted. Fluid-filled tubular structure in the right adnexa adjacent to the right ovary probable represent hydrosalphinx. Concern for sexual transmitted infections. No evidence of ovarian torsion. Discussed these resul ts with Dr. Villarreal gynecology. Recommend outpatient follow-up in 2 to 3 weeks for further evaluation. No further treatment at this time. Will provide a few days worth of pain medication as needed. If any increasing pain, fever to return back to ED. Impression Primary Impression: Ovarian cyst Disposition: 01 HOME, SELF-CARE Condition: Stable Departure-Patient Inst. Decision time for Depature: 16:52 Referrals: NO,LOCAL PHYSICIAN (PCP) Primary Care Physician VIRAJ VILLARREAL DO Patient Instructions: Ovarian Cyst ED Scripts Hydrocodone/Acetaminophen (Hydrocodone-Acetamin 5-325 mg) 5 Mg-325 Mg Tablet 1 TAB PO Q4H PRN for PAIN-MODERATE (5-7), #8 TAB Prov: ANNMARIE DICKERSON 06/06/23 ANNMARIE DICKERSON Jun 06, 2023 14:27
[2023-06-06 14:28] LABS: BASOPHILS # (AUTO) 0.1 10^3/uL (0.0-0.1); BASOPHILS % (AUTO) 1 % (0-10); EOSINOPHILS # (AUTO) 0.2 10^3/uL (0.0-0.3); EOSINOPHILS % (AUTO) 2 % (0-10); HEMATOCRIT 42 % (35-52); HEMOGLOBIN 13.6 g/dL (11.5-16.0); LYMPHOCYTES # (AUTO) 3.1 10^3/uL (1.0-4.0); LYMPHOCYTES % (AUTO) 28 % (12-44); MEAN CORPUSCULAR HEMOGLOBIN 29 pg (25-34); MEAN CORPUSCULAR HGB CONC 33 g/dL (32-36); MEAN CORPUSCULAR VOLUME 89 fL (80-99); MEAN PLATELET VOLUME 10.7 fL (9.0-12.2); MONOCYTES # (AUTO) 0.7 10^3/uL (0.0-1.0); MONOCYTES % (AUTO) 6 % (0-12); NEUTROPHILS % (AUTO) 63 % (42-75); PLATELET COUNT 237 10^3/uL (130-400); WHITE BLOOD COUNT 11.1 10^3/uL (4.3-11.0)
[2023-06-06] MEDS ORDERED: ONDANSETRON INJECTION 4 MG/2 ML (SDV) IVP ONE (14:30)
[2023-06-06] MEDS ORDERED: KETOROLAC INJ 30 MG/ML VIAL IVP ONE (14:30)
[2023-06-06 14:36] LABS: BILIRUBIN,URINE NEGATIVE (NEGATIVE); CLARITY,URINE CLEAR; COLOR,URINE YELLOW; GLUCOSE, URINE (UA) NEGATIVE (NEGATIVE); KETONES,URINE NEGATIVE (NEGATIVE); NITRITE,URINE NEGATIVE (NEGATIVE); PROTEIN,URINE NEGATIVE (NEGATIVE)
[2023-06-06 14:37] LABS: ALBUMIN 4.1 GM/DL (3.2-4.5); POTASSIUM 3.5 MMOL/L (3.6-5.0)
[2023-06-06 14:37] LABS: BACTERIA,URINE TRACE /HPF; LEUKOCYTE ESTERASE ,URINE NEGATIVE (NEGATIVE); RBC,URINE 0-2 /HPF; SQUAMOUS EPITHELIAL CELL,UR 0-2 /HPF
[2023-06-06 14:38] LABS: CALCIUM 8.9 MG/DL (8.5-10.1)
[2023-06-06 14:41] LABS: BILIRUBIN,TOTAL 0.4 MG/DL (0.1-1.0)
[2023-06-06 14:43] LABS: CREATININE SERUM 0.77 MG/DL (0.60-1.30)
--- NOTE | 2023-06-06 15:08 | Diagnostic Imaging Report ---
EXAMINATION: CT abdomen and pelvis without contrast. TECHNIQUE: Multiple contiguous axial images were obtained through the abdomen and pelvis without the use of intravenous contrast. All CT scans use one or more of the following dose optimizing techniques: automated exposure control, MA and/or KvP adjustment based on patient size and exam type or iterative reconstruction. HISTORY: Left flank pain. COMPARISON: None available. FINDINGS: Lung bases: The lung bases are clear. Solid organs: The liver is normal. The gallbladder is normal. There is no biliary ductal dilation. Pancreas is normal. Spleen is normal. Adrenal glands are normal. The kidneys are normal without visualized calculus or hydronephrosis. Bowel: The stomach and small bowel are normal without obstruction. The right hemicolon is decompressed but does have an appearance of some wall thickening and mild surrounding inflammatory stranding. There are no secondary signs of acute appendicitis. Peritoneum: There is trace free fluid in the pelvis. No loculated fluid collection or free air. No suspicious lymphadenopathy. Vasculature: Normal without aneurysm. Musculoskeletal: No suspicious osseous lesion or compression fracture. Pelvis: There is a prominent left adnexal cyst measuring up to 3 cm. The uterus is surgically absent. Urinary bladder is decompressed. IMPRESSION: 1. No visualized renal calculus or hydronephrosis. 2. Mild wall thickening of the right hemicolon with some inflammatory stranding of the adjacent fat. These findings could be seen with an infectious or inflammatory colitis in the appropriate clinical setting. 3. A 3.0 cm left adnexal cyst. Given the history of left lower quadrant abdominal pain, evaluation with pelvic ultrasound may be warranted. Dictated by: Dictated on workstation # [id number]
--- NOTE | 2023-06-06 16:40 | Diagnostic Imaging Report ---
PROCEDURE: US Non-ob pelvis comp/trans. TECHNIQUE: Multiple realtime grayscale images were obtained of the pelvis in various projections endovaginally. Transabdominal imaging was also performed. INDICATION: Left lower quadrant pain. Hysterectomy 2019. COMPARISON: CT abdomen pelvis on 06/06/2023. FINDINGS: Hysterectomy changes. The right ovary measures 2.3 x 1.7 x 1.7 cm. Fluid-filled tubular lesion in the right ovary likely represents hydrosalpinx. The left ovary measures 4.2 x 2.7 x 3.7 cm. Left ovarian cyst measuring 3.1 x 2.5 x 2.9 cm with thin and associated septation. Normal color and spectral Doppler within both ovaries. Trace free fluid within the pelvis. IMPRESSION: Simple appearing 3 cm left ovarian cyst. Consider surveillance per clinical protocol. Fluid-filled tubular structure in the right adnexa adjacent to the right ovary probably represents hydrosalpinx. No evidence of ovarian torsion. Dictated by: Dictated on workstation # [id number]
[2023-06-06] MEDS ORDERED: ACHD5005 PO (16:52)
[2023-06-06 17:00] VITALS: BP 127/68
== END 2023-06-06 17:00 | disposition home or self-care (01) ==
LOC: EDUNIT# 14:09 → ER 14:11
DX: N83.202 Unspecified ovarian cyst, left side (principal)
CPT/HCPCS: 36415; 74176; 76830; 76856; 80053; 81000; 83690; 85025